=== PATIENT | female | born 1975 | race Asian ===

== ENCOUNTER 2017-03-06 15:36 | Emergency (ER) | payer OTHER ==
[~2017-03-06] VITALS: Ht 152.4 cm; Wt 72.9 kg
[2017-03-06 16:07] LABS: HCG UR LOT HCG7030192
[2017-03-06 16:08] LABS: HEMATOCRIT 37.6 % (34.6-47.8); HEMOGLOBIN 12.4 g/dL (11.7-16.4); WHITE BLOOD COUNT 18.3 x10^3/uL (3.4-10)
[2017-03-06] MEDS ORDERED: NITR100C56 PO (16:08)
[2017-03-06] MEDS ORDERED: PHEN100T90 PO (16:08)
[2017-03-06 16:20] LABS: BLOOD UREA NITROGEN 7 mg/dL (7-18)
[2017-03-06 16:26] LABS: HCG UR OBC PASS
[2017-03-06] MEDS ORDERED: SODIUM CHLORIDE FLUSH 10ML SYR IVF ONE (16:30)
[2017-03-06] MEDS ORDERED: SODIUM CHLORIDE 0.9% 1,000ML IVBOLUS ONE (16:30)
[2017-03-06] MEDS ORDERED: ACETAMINOPHEN 500 MG TABLET PO ONE (16:30)
[2017-03-06] MEDS ORDERED: ONDANSETRON 2MG/ML, 2ML IVPush ONE (16:30)
[2017-03-06 16:38] LABS: DIFF TOTAL CELLS COUNTED 100 CELL DIFF
[2017-03-06 16:40] LABS: VERIFY COUNTS? YES
[2017-03-06] MEDS ORDERED: ACETAMINOPHEN 500 MG TABLET ONE ×2 (16:52→16:56)
[2017-03-06] MEDS ORDERED: ONDANSETRON 2MG/ML, 2ML ONE ×2 (16:52→16:57)
[2017-03-06] MEDS ORDERED: OMNIPAQUE 350 MG/ML, 100ML BOTTLE ONE (17:56)
[2017-03-06 18:46] VITALS: BP 103/56
== END 2017-03-06 18:50 | disposition home or self-care (01) ==
LOC: ED 18:44
DX: K44.9 Diaphragmatic hernia without obstruction or gangrene (principal); N83.201 Unspecified ovarian cyst, right side
CPT/HCPCS: 36415; 74177; 76700; 80048; 80076; 81001; 81025; 82040; 83690; 85025; 96361; 96374; 99285; J2405; J7030; Q9967

== ENCOUNTER → 2018-03-01 | Outpatient (CLI) | payer OTHER ==
[~2018-03-01] MED LIST: NITR100C56 PO; PHEN100T90 PO
== END | disposition home or self-care (01) ==
LOC: CFH 14:44
PROVIDERS: ATTEND Family Medicine
DX: Z12.31 Encounter for screening mammogram for malignant neoplasm of breast (principal)
CPT/HCPCS: 77067

== ENCOUNTER 2018-09-17 08:24 | Emergency (ER) | payer OTHER ==
[~2018-09-17] VITALS: Ht 154.9 cm; Wt 70.8 kg
[2018-09-17 08:33] VITALS: BP 114/66
[2018-09-17] MEDS ORDERED: KETOROLAC 30 MG/1 ML ONE (09:56)
--- NOTE | 2018-09-17 09:59 | NUR ---
pt to ultrasound w tech
[2018-09-17] MEDS ORDERED: KETOROLAC 30 MG/1 ML IM ONE (10:00)
--- NOTE | 2018-09-17 10:20 | NUR ---
PT RETURNED FROM ULTRASOUND. PT TOLERATED THE IMAGING WITH MODERATE DISCOMFORT.
--- NOTE | 2018-09-17 10:47 | NUR ---
TASK RN: UA COLLECTED VIA STRAIGHT CATH, LABELED, AND WALKED TO LAB. PRIMARY RN NOTIFIED.
[2018-09-17 10:56] LABS: BASOPHILS # (AUTO) 0.05 x10^3/uL (0-0.1); BASOPHILS % (AUTO) 0 % (0-1); EOSINOPHILS # (AUTO) 0.19 x10^3/uL (0-0.4); EOSINOPHILS % (AUTO) 2 % (1-7); LYMPHOCYTES # (AUTO) 1.77 x10^3/uL (1-3.4); LYMPHOCYTES % (AUTO) 15 % (22-44); MD NO; MEAN CORPUSCULAR HEMOGLOBIN 30.8 pg (27.0-34.8); MEAN CORPUSCULAR HGB CONC 34.1 g/dL (32.4-35.8); MEAN CORPUSCULAR VOLUME 90.5 fL (80-100); MEAN PLATELET VOLUME 7.2 fL (7.4-10.4); MONOCYTES # (AUTO) 0.76 x10^3/uL (0.2-0.8); MONOCYTES % (AUTO) 6 % (2-9); NEUTROPHILS # (AUTO) 9.37 x10^3/uL (1.8-6.8); NEUTROPHILS % (AUTO) 77 % (42-75); PLATELET COUNT 343 x10^3/uL (130-400); RED BLOOD COUNT 4.67 x10^6/uL (3.82-5.3)
[2018-09-17 10:59] LABS: MICROSCOPIC NOT IND
[2018-09-17 11:02] LABS: CULTURE INDICATED? NO
[2018-09-17 11:06] LABS: ALBUMIN 3.7 g/dL (3.4-5.0); ANION GAP 5 mmol/L (5-15); CALCIUM 8.4 mg/dL (8.5-10.1); CHLORIDE 108 mmol/L (98-107); CREATININE 0.72 mg/dL (0.55-1.02)
== END 2018-09-17 12:23 | disposition home or self-care (01) ==
LOC: ED 08:57
DX: N93.8 Other specified abnormal uterine and vaginal bleeding (principal); N92.4 Excessive bleeding in the premenopausal period
CPT/HCPCS: 36415; 76830; 80048; 81003; 82040; 84703; 85025; 96372; 99284; J1885

== ENCOUNTER → 2018-10-18 | Outpatient (CLI) | payer OTHER ==
[~2018-10-18] MED LIST changes: +LEVO200T5 PO
== END | disposition home or self-care (01) ==
LOC: STAR 15:26
PROVIDERS: ATTEND Obstetrics & Gynecology
DX: Z02.9 Encounter for administrative examinations, unspecified (principal)

== ENCOUNTER 2021-02-10 12:21 | Outpatient (CLI) | payer OTHER | END 2021-02-10 23:59 | disposition home or self-care (01) | LOC: CFH 12:21 | PROVIDERS: ATTEND Family Medicine | DX: Z12.31 Encounter for screening mammogram for malignant neoplasm of breast (principal); R92.2 Inconclusive mammogram | CPT/HCPCS: 76641; 77063; 77067 ==